=== PATIENT | female | born 1945 | race Two or more races ===

== ENCOUNTER 2021-02-09 08:43 | Outpatient (CLI) | payer OTHER | END 2021-02-09 09:10 | disposition home or self-care (01) | LOC: EDBD 08:43 → MAMO-SONO 08:43 | PROVIDERS: ATTEND Family Medicine | DX: I70.0 Atherosclerosis of aorta (principal); Z12.31 Encounter for screening mammogram for malignant neoplasm of breast ==

== ENCOUNTER 2021-02-24 13:49 | Outpatient (CLI) | payer OTHER | END 2021-02-24 13:51 | disposition home or self-care (01) | LOC: NUCLEAR 13:49 | PROVIDERS: ATTEND Family Medicine | DX: M81.0 Age-related osteoporosis without current pathological fracture (principal) ==

== ENCOUNTER → 2021-11-19 12:59 | Outpatient (CLI) | payer OTHER | END | disposition home or self-care (01) | LOC: RAD 12:59 | PROVIDERS: ATTEND Physical Medicine & Rehabilitation | DX: M54.2 Cervicalgia (principal) ==

== ENCOUNTER 2022-04-14 12:52 | Outpatient (CLI) | payer OTHER | END 2022-04-14 12:53 | disposition home or self-care (01) | LOC: NUCLEAR 12:52 | PROVIDERS: ATTEND Psychiatry & Neurology Clinical Neurophysiology | DX: G30.1 Alzheimer's disease with late onset (principal) | CPT/HCPCS: 78803; A9557 ==

== ENCOUNTER 2024-12-04 13:13 | Outpatient (CLI) | payer OTHER | END 2024-12-04 13:26 | disposition home or self-care (01) | LOC: RAD 13:13 | PROVIDERS: ATTEND Internal Medicine Pulmonary Disease | DX: R05.3 Chronic cough (principal) ==